=== PATIENT | male | born 1995 | race Caucasian/White ===

== ENCOUNTER 2017-10-31 04:55 | Observation (INO) ==
[2017-10-31] MEDS ORDERED: Morphine Inj 4 MG/ML Vial IV.PUSH ONE (05:43)
[2017-10-31] MEDS ORDERED: Sod Chloride 0.9% Inj 1,000 ML IV.SIG ONE (05:43)
[2017-10-31] MEDS ORDERED: Pantoprazole Inj 40 MG Vial IV.PUSH ONE (05:44)
[2017-10-31 05:59] LABS: Baso % (Auto) 0.2 % (0.0-2.0); Eos # (Auto) 0.1 th/mm3 (0.0-0.4); Eos % (Auto) 0.4 % (0.0-4.0); Hematocrit 43.3 % (39.0-51.0); Hemoglobin 14.5 gm/dL (13.0-17.0); Lymph # (Auto) 2.6 th/mm3 (1.0-4.8); Lymph % (Auto) 20.5 % (9.0-44.0); Mean Corpuscular HGB Conc 33.5 % (32.0-36.0); Mean Corpuscular Hemoglobin 29.7 pg (27.0-34.0); Mean Corpuscular Volume 88.7 fL (80.0-100.0); Mean Platelet Volume 8.4 fL (7.0-11.0); Mono # (Auto) 0.9 th/mm3 (0.0-0.9); Mono % (Auto) 6.9 % (0.0-8.0); Neut # (Auto) 9.1 th/mm3 (1.8-7.7); Platelet Count 207 th/mm3 (150-450); Red Blood Count 4.89 mil/mm3 (4.50-5.90); Red Cell Distribution Width 12.7 % (11.6-17.2); White Blood Count 12.7 th/mm3 (4.0-11.0)
[2017-10-31 06:13] LABS: Activated Partial Thrombo Time 28.4 sec (24.3-30.1)
[2017-10-31 06:26] LABS: Anion Gap 10 meq/L (5-15); Aspartate Aminotransferase 15 U/L (15-37); Blood Urea Nitrogen 11 mg/dL (7-18); Calcium 9.1 mg/dL (8.5-10.1); Carbon Dioxide 23.3 meq/L (21.0-32.0); Chloride 107 meq/L (98-107); Glomerular Filtration Rate Greater Than 89 mL/min (>89); Glucose,Random 93 mg/dL (74-106); Lipase 136 U/L (73-393); Potassium 3.9 meq/L (3.5-5.1); Sodium 140 meq/L (136-145)
[2017-10-31 06:27] LABS: Alanine Aminotransferase 35 U/L (12-78)
[2017-10-31 06:29] LABS: Alkaline Phosphatase 83 U/L (45-117); Total Protein 7.4 g/dL (6.4-8.2)
--- NOTE | 2017-10-31 06:37 | ED ---
HPI General Chief complaint: Abdominal Pain Stated complaint: ABD pain, vomiting Time Seen by Provider: 10/31/17 05:06 Source: patient Mode of arrival: ambulatory Limitations: no limitations History of Present Illness HPI narrative: The patient is a 22 year old male who presents to the [facility] emergency department with a history of abdominal pain that he reports first began last year between December and January 2017. He reports that the pain is in the midepigastric area and is sharp in character. He reports that it radiates to the right upper quadrant of the abdomen. He reports that it usually lasts for a few days and then seems to resolve on its own. He denies any change or worsening with eating. He does report having intermittent heartburn, however he reports that he has had this intermittently since high school. The patient reports that he has been seen by his primary care physician on 2 occasions related to the pain. On the first occasion he had laboratory studies done which as far as he knows were unremarkable. He has not had any imaging done related to the pain. He denies taking any prescribed medications. He reports that recently even when he is not experiencing the severe pain if he palpates the midepigastric area he has discomfort to palpation. He reports that the pain became worse again 2 days ago. He reports that it was a 2-3 out of 10 in severity, however this evening it awoke him from sound sleep and was an 8 out of 10 in severity. He reports that he had nausea and vomiting 1 prior to arrival. He denies having any diarrhea. He reports that he has been moving his bowels regularly. He denies having any blood in his stool or black or tarry stools. On review of systems otherwise, he denies having any known recent fevers, cough, congestion, neck pain, chest pain, shortness of breath, urinary symptoms, or neurologic symptoms. Related Data Home Medications Medication Instructions Recorded Confirmed No Known Home Medications 10/31/17 10/31/17 Allergies Allergy/AdvReac Type Severity Reaction Status Date / Time Sulfa (Sulfonamide Allergy Hives Verified 10/31/17 05:02 Antibiotics) Review of Systems ROS Unobtainable All other systems reviewed negative except as stated in HPI [facility] Medical History Medical History Neuropathy of right foot (Acute) Patient denies medical problems (Acute) Social History Social History Substance History: No History of Abuse Second Hand Smoke Exposure: No Smoking Status: Never smoker How Often Do You Have a Drink Containing Alcohol: Never Recent Travel in [facility] within the Last 8 Weeks: No Recent Out of Country Travel within the Last 8 Weeks: No Immunization History Tetanus Immunization: <5 Years Tetanus Immunization Year if Known: 2012 Hx Influenza Vaccine This Season: No Exam Const General: cooperative, no acute distress and well developed Nutritional Appearance: well nourished Orientation: alert, awake and oriented x3 HENMT Head: normocephalic and atraumatic Nose: no nasal discharge and no epistaxis Mouth: moist mucous membranes Throat: posterior oropharynx normal Eyes Sclera: normal sclerae Pupils: PERRL Neck Neck: no meningeal signs, trachea midline and no JVD Resp Effort & Inspection: no use of accessory muscles Auscultation: clear to auscultation bilaterally Cardio Rate: regular rate Rhythm: regular rhythm Heart Sounds: no murmurs GI Inspection: non-distended Palpation: soft, no hepatosplenomegaly, no masses and tender in the epigastrum, in the LUQ and in the RUQ; not in the LLQ, not in the RLQ, Ramirez's sign negative and with no rebound tenderness Auscultation: normal bowel sounds Back/Spine/Pelvis Back: no CVA tenderness Skin General: dry skin (warm) Neuro General: alert, awake and oriented x3 Cranial Nerves: other (Grossly nonfocal. No facial asymmetry.) Speech: speech normal Motor: no movement abnormalities noted Extrem General: normal to inspection, no clubbing, no cyanosis and no edema Psych Mood: congruent mood Affect: normal affect Judgment: judgment good Course Initial Documented Vital Signs Temperature 98.4 F 10/31/17 04:59 Pulse Rate 78 10/31/17 04:59 Respiratory Rate 18 10/31/17 04:59 Blood Pressure 133/70 10/31/17 04:59 Pulse Oximetry 100 10/31/17 04:59 Last Documented Vital Signs Temperature 98.1 F 10/31/17 05:11 Pulse Rate 72 10/31/17 07:17 Respiratory Rate 18 10/31/17 07:17 Blood Pressure 109/65 10/31/17 07:17 Pulse Oximetry 97 10/31/17 07:17 Sign Out Sign Out Data: Patient Sign Out occurred on 10/31/17 at 07:23. Patient's care was discussed, and care was transferred from Yohana Avelar MD to Duc Nava. Sign Out Comment: The patient's case will be checked out to the oncoming physician to disposition the patient based on the conclusion of his workup. The patient has a leukocytosis noted with midepigastric abdominal pain associated with left upper and right upper abdominal pain. The patient has urinalysis and CT scan of the abdomen and pelvis that are pending. Last updated by Yohana Avelar MD at 10/31/17 06:57 Medical Decision Making MDM Narrative Medical decision making narrative: During the course of the patient's emergency department visit, the patient's history, examination, and differential diagnosis were reviewed with the patient. The patient was placed on a cardiac rehabilitation program director with oximetry and frequent blood pressure monitoring. The patient had IV access obtained and blood work sent for analysis. Evaluation was begun in order to determine the possible cause of this patient's abdominal pain. Differential diagnosis includes peptic ulcer disease, versus pancreatitis, versus biliary colic, versus acute cholecystitis, versus perforated bowel The patient was initially provided morphine for pain, Compazine for nausea, normal saline IV fluids. The patient's diagnostic evaluation is remarkable for a white count of 12.7, hemoglobin is 14.5, platelets are 207 with neutrophils at 72, PT 10, PTT 28.4, chemistry is within normal limits, lipase within normal limits at 136, lactic acid within normal limits at 0.6. CT scan of the abdomen and pelvis is pending at the conclusion of my shift. The patient's case will be checked out to the oncoming emergency physician to disposition the patient based on the conclusion of his workup. Differential Diagnosis Differential Diagnosis: includes peptic ulcer disease, versus pancreatitis, versus biliary colic, versus acute cholecystitis, versus perforated bowel, versus kidney stone Medical Records Medical records reviewed: Yes I reviewed the patient's medical records. Lab Data Lab results reviewed: Yes I reviewed the patient's lab results. Result diagrams: 10/31/17 05:50 10/31/17 05:50 Lab Results 10/31/17 10/31/17 10/31/17 Range/Units 05:50 05:50 05:50 WBC 12.7 H (4.0-11.0) th/mm3 RBC 4.89 (4.50-5.90) mil/mm3 Hgb 14.5 (13.0-17.0) gm/dL Hct 43.3 (39.0-51.0) % MCV 88.7 (80.0-100.0) fL MCH 29.7 (27.0-34.0) pg MCHC 33.5 (32.0-36.0) % RDW 12.7 (11.6-17.2) % Plt Count 207 (150-450) th/mm3 MPV 8.4 (7.0-11.0) fL Neut % (Auto) 72.0 H (16.0-70.0) % Lymph % (Auto) 20.5 (9.0-44.0) % Atlantic % (Auto) 6.9 (0.0-8.0) % Eos % (Auto) 0.4 (0.0-4.0) % Baso % (Auto) 0.2 (0.0-2.0) % Neut # (Auto) 9.1 H (1.8-7.7) th/mm3 Lymph # (Auto) 2.6 (1.0-4.8) th/mm3 Atlantic # (Auto) 0.9 (0.0-0.9) th/mm3 Eos # (Auto) 0.1 (0.0-0.4) th/mm3 Baso # (Auto) 0.0 (0.0-0.2) th/mm3 WBC Differential . Differential Comment Auto diff final PT 10.0 (9.8-11.6) sec INR 1.0 Ratio APTT 28.4 (24.3-30.1) sec Sodium 140 (136-145) meq/L Potassium 3.9 (3.5-5.1) meq/L Chloride 107 (98-107) meq/L Carbon Dioxide 23.3 (21.0-32.0) meq/L Anion Gap 10 (5-15) meq/L BUN 11 (7-18) mg/dL Creatinine 1.02 (0.60-1.30) mg/dL Estimated GFR Greater than 89 (>89) mL/min Random Glucose 93 (74-106) mg/dL Lactic Acid (0.4-2.0) mmol/L Calcium 9.1 (8.5-10.1) mg/dL Total Bilirubin 0.8 (0.2-1.0) mg/dL AST 15 (15-37) U/L ALT 35 (12-78) U/L Alkaline Phosphatase 83 (45-117) U/L Total Protein 7.4 (6.4-8.2) g/dL Albumin 4.0 (3.4-5.0) g/dL Lipase 136 (73-393) U/L 10/31/17 Range/Units 05:50 WBC (4.0-11.0) th/mm3 RBC (4.50-5.90) mil/mm3 Hgb (13.0-17.0) gm/dL Hct (39.0-51.0) % MCV (80.0-100.0) fL MCH (27.0-34.0) pg MCHC (32.0-36.0) % RDW (11.6-17.2) % Plt Count (150-450) th/mm3 MPV (7.0-11.0) fL Neut % (Auto) (16.0-70.0) % Lymph % (Auto) (9.0-44.0) % Atlantic % (Auto) (0.0-8.0) % Eos % (Auto) (0.0-4.0) % Baso % (Auto) (0.0-2.0) % Neut # (Auto) (1.8-7.7) th/mm3 Lymph # (Auto) (1.0-4.8) th/mm3 Atlantic # (Auto) (0.0-0.9) th/mm3 Eos # (Auto) (0.0-0.4) th/mm3 Baso # (Auto) (0.0-0.2) th/mm3 WBC Differential Differential Comment PT (9.8-11.6) sec INR Ratio APTT (24.3-30.1) sec Sodium (136-145) meq/L Potassium (3.5-5.1) meq/L Chloride (98-107) meq/L Carbon Dioxide (21.0-32.0) meq/L Anion Gap (5-15) meq/L BUN (7-18) mg/dL Creatinine (0.60-1.30) mg/dL Estimated GFR (>89) mL/min Random Glucose (74-106) mg/dL Lactic Acid 0.6 (0.4-2.0) mmol/L Calcium (8.5-10.1) mg/dL Total Bilirubin (0.2-1.0) mg/dL AST (15-37) U/L ALT (12-78) U/L Alkaline Phosphatase (45-117) U/L Total Protein (6.4-8.2) g/dL Albumin (3.4-5.0) g/dL Lipase (73-393) U/L Discharge Plan Discharge Disposition Patient Disposition: 30 Still Patient Physicians Team ED Provider: Duc Nava Primary Care Provider: Samir Post Rxs /Orders / Referrals /Forms Prescriptions: No Action No Known Home Medications RF: 0 Status ED Status: With Doctor
--- NOTE | 2017-10-31 07:49 | CT ---
EXAM DATE: 10/31/2017 7:27 AM EDT AGE/SEX: 22 years / Male INDICATIONS: Epigastric pain for 2 days. CLINICAL DATA: This is the patient's initial encounter. Patient reports that signs and symptoms have been present for 2 days and indicates a pain score of 5/10. MEDICAL/SURGICAL HISTORY: None. None. ORAL CONTRAST: No oral contrast ingested. RADIATION DOSE: 7.46 CTDI (mGy) ; Combined studies COMPARISON: No prior exams available for comparison. TECHNIQUE: Multiple contiguous axial images were obtained through the abdomen and pelvis following b olus infusion of 100 ml Omnipaque 350 (iohexol) nonionic water-soluble contrast as a single exam do se. No oral contrast ingested. Using automated exposure control and adjustment of the mA and/or kV a ccording to patient size, radiation dose was kept as low as reasonably achievable to obtain optimal d iagnostic quality images. DICOM format image data is available electronically for review and compari son. FINDINGS: Lower Lungs: The visualized lower lungs are clear. Liver: The liver has a homogeneous density without space-occupying lesion. There is no dilation of th e biliary tree. Gallbladder: Unremarkable. Spleen: Unremarkable. Pancreas: Unremarkable without mass or calcification. Kidneys: Normal in size and shape. No evidence of mass or hydronephrosis. Adrenal Glands: Unremarkable. Aorta: The aorta and proximal iliac vessels are grossly unremarkable without aneurysmal dilation. Bowel/Mesentery: The appendix is enlarged, measuring 1.4 cm, with wall thickening and surrounding fa t stranding. There is a small hyperdensity within the lumen, likely an appendicolith. Findings are ch aracteristic of acute appendicitis. No evidence of abscess formation or perforation. A few small ileo cecal lymph nodes are likely reactive. Scattered colonic diverticula without evidence of acute divert iculitis. No bowel obstruction. Abdominal Wall: Intact. Retroperitoneum: No evidence of adenopathy in the retrocrural, para-aortic, or deep pelvic regions. Bladder: Contours are smooth. Reproductive Organs: No abnormal masses or calcifications seen. Inguinal: The inguinal region is unremarkable without evidence of adenopathy. Bony Structures: Unremarkable. CONCLUSION: 1. Acute uncomplicated appendicitis. Findings discussed Dr. Nava at 7:43 AM on 10/31/2017. Electronically signed by: Roseanne Yu MD 10/31/2017 7:47 AM EDT
[2017-10-31 08:16] LABS: Bilirubin,Urine Negative (Negative); Clarity,Urine Clear (Clear); Color,Urine Straw (Yellw/Straw); Glucose,Urine (UA) Negative (Negative); Leukocyte Esterase,Urine Negative (Negative); Mucus,Urine Few /lpf (Occasional); Nitrite,Urine Negative (Negative); Specific Gravity,Urine 1.014 (1.002-1.035)
[2017-10-31] MEDS ORDERED: Piperacil/Tazo 3.375 GM Premix 50 ML IV.SIG ONE (08:33)
[2017-10-31] MEDS: Morphine Sulfate Inj 2 MG/ML Vial IV.PUSH PRN ×2 (11:03→22:22)
[2017-10-31] MEDS ORDERED: Neostigmine Inj 5 MG/5 ML Syringe IV.PUSH ONE (12:00)
[2017-10-31] MEDS ORDERED: Ketorolac Inj 30 MG/ML (IVP) Vial IV.PUSH ONE (12:00)
[2017-10-31] MEDS ORDERED: Glycopyrrolate Inj 1 MG/5 ML Syringe IV.PUSH ONE (12:00)
[2017-10-31] MEDS ORDERED: Lidocaine PF 1% Inj 5 ML Syringe INFILTRATN ONE (12:00)
--- NOTE | 2017-10-31 12:37 | P.HPGS ---
History of Present Illness Service: General Surgery Primary Care Physician: Samir Post MD Chief Complaint: Abdominal pain History of Present Illness: 22 yo M presents with generalized abdominal pain for 2-3 days was developed into acute right sided and epigastric pain early this morning. He had one episode of emesis and no other complaints. He states that for a few months he has had off and on epigastric pain. He has no medical problems and no previous surgeries. 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 He was evaluated in the emergency department and noted to have leukocytosis and CT of the abdomen and pelvis consistent with acute appendicitis. - Diagnosis (1) Acute appendicitis Inpatient Certification: I certify that the inpatient services were ordered in accordance with Medicare regulations governing the order. This includes certification that hospital inpatient services are reasonable and necessary and in the case of services not specified as inpatient-only under 42 CFR 419.22(n), that they are appropriately provided as inpatient services in accordance to with the 2-midnight benchmark under 43 CFR 412.3(e) Plans for Post Hospital Care: Home Review of Systems All other systems reviewed negative except as stated in HPI [facility] - History History Provided By: Patient - Medical History Medical History: Medical History (Last Reviewed 10/31/17 @ 11:27 by Tiera Pierce RN) Neuropathy of right foot Patient denies medical problems - Tobacco History Second Hand Smoke Exposure: No Smoking Status: Never smoker - Alcohol History How Often Do You Have a Drink Containing Alcohol: Never - Substance Use History Substance History: No History of Abuse - Travel History Recent Travel in the [place] Within the Last 8 Weeks: No Recent Travel Out of the Country Within the Last 8 Weeks: No - Immunization History Tetanus Immunization: <5 Years Tetanus Immunization Year if Known: 2012 Hx Influenza Vaccine This Season: No Medications and Allergies Active Medications: Active Medications Piperacillin/Tazobactam/Dextrose (Zosyn 3.375 Gm Premix) 50 mls @ 100 mls/hr IV.SIG Q6H LC Lactated Ringer's (Lr 1000 Ml Inj) 1,000 mls @ 125 mls/hr IV.CONT .Q8H LC Last Admin: 10/31/17 08:58 Dose: 125 mls/hr Morphine Sulfate (Morphine Inj) 2 mg IV.PUSH Q4H PRN PRN Reason: Pain 1-10 Last Admin: 10/31/17 11:03 Dose: 2 mg Ondansetron HCl (Zofran Inj) 4 mg IV.PUSH Q6H PRN PRN Reason: NAUSEA OR VOMITING Sodium Chloride (Ns Flush) 2 ml IV.FLUSH PRN PRN PRN Reason: FLUSH AFTER USING IV ACCESS Allergies Allergy/AdvReac Type Severity Reaction Status Date / Time Sulfa (Sulfonamide Allergy Hives Verified 10/31/17 05:02 Antibiotics) Home Medications Medication Instructions Recorded Confirmed Type No Known Home Medications 10/31/17 10/31/17 History Exam Vital signs: Vital Signs 10/31/17 04:59 10/31/17 05:11 10/31/17 05:58 Temperature 98.4 F 98.1 F Pulse Rate 78 78 Respiratory Rate 18 16 Blood Pressure 133/70 128/69 Pulse Oximetry 100 99 100 10/31/17 07:17 10/31/17 11:15 Temperature 97.5 F L Pulse Rate 72 67 Respiratory Rate 18 16 Blood Pressure 109/65 118/69 Pulse Oximetry 97 100 Intake & Output 10/30/17 10/31/17 10/31/17 18:59 06:59 18:59 Weight 95.254 kg 95.254 kg Other: Weight On Admission 95.254 kg Narrative: GENERAL: Awake and alert. No acute distress. Cooperative. HEAD: Normocephalic. Atraumatic. EYES: Pupils equal round and reactive to light bilaterally. No scleral icterus. ENT: Moist oral mucosa. NECK: Trachea midline. CHEST: Lungs clear to auscultation bilaterally with no wheezing or rhonchi. No respiratory distress. CARDIOVASCULAR: Regular rate and rhythm. ABDOMEN: Severe RLQ ttp and RUQ ttp. EXTREMITIES: No cyanosis or edema. SKIN: Warm, dry, nonjaundiced. Results - Results CT scan - abdomen: report reviewed, image reviewed CT scan - pelvis: report reviewed, image reviewed Caprini VTE Risk Assessment Caprini VTE Risk Assessment: No/Low Risk (score <= 1) Caprini Risk Assessment Model: Point Value = 1 Point Value = 2 Point Value = 3 Point Value = 5 Age 41-60 Minor surgery BMI > 25 kg/m2 Swollen legs Varicose veins or History of unexplained or recurrent spontaneous Oral contraceptives or hormone replacement Sepsis (< 1 month) Serious lung disease, including pneumonia (< 1 month) Abnormal pulmonary function Acute myocardial infarction Congestive heart failure (< 1 month) History of inflammatory bowel disease Medical patient at bed rest Age 61-74 Arthroscopic surgery Major open surgery (> 45 min) Laparoscopic surgery (> 45 min) Malignancy Confined to bed (> 72 hours) Immobilizing plaster cast Central venous access Age >= 75 History of VTE Family history of VTE Factor V Leiden Prothrombin [id number] Lupus anticoagulant Anticardiolipin antibodies Elevated serum homocysteine Heparin-induced thrombocytopenia Other congenital or acquired thrombophilia Stroke (< 1 month) Elective arthroplasty Hip, pelvis, or leg fracture Acute spinal cord injury (< 1 month) Prophylaxis Regimen: Total Risk Factor Score Risk Level Prophylaxis Regimen 0-1 Low Early ambulation 2 Moderate Order ONE of the following: *Sequential Compression Device (SCD) *Heparin 5000 units SQ BID 3-4 Higher Order ONE of the following medications: *Heparin 5000 units SQ TID *Enoxaparin/Lovenox 40 mg SQ daily (WT < 150 kg, CrCl > 30 mL/min) *Enoxaparin/Lovenox 30 mg SQ daily (WT < 150 kg, CrCl > 10-29 mL/min) *Enoxaparin/Lovenox 30 mg SQ BID (WT < 150 kg, CrCl > 30 mL/min) AND/OR *Sequential Compression Device (SCD) 5 or more Highest Order ONE of the following medications: *Heparin 5000 units SQ TID (Preferred with Epidurals) *Enoxaparin/Lovenox 40 mg SQ daily (WT < 150 kg, CrCl > 30 mL/min) *Enoxaparin/Lovenox 30 mg SQ daily (WT < 150 kg, CrCl > 10-29 mL/min) *Enoxaparin/Lovenox 30 mg SQ BID (WT < 150 kg, CrCl > 30 mL/min) AND *Sequential Compression Device (SCD) Assessment and Plan - Assessment (1) Acute appendicitis Code(s): K35.80 - Unspecified acute appendicitis Status: Acute - Plan Evaluation consistent with acute appendicitis. Recommend proceed with laparoscopic appendectomy. Discussed in detail with patient and he agrees and desires to proceed.
[2017-10-31] MEDS ORDERED: Piperacil/Tazo 3.375 GM Premix 50 ML IV.SIG SCH (15:00)
[2017-10-31] MEDS ORDERED: Bupivacaine/Epinephrine PF Inj 0.5% 10 ML Vial ONE (15:35)
--- NOTE | 2017-10-31 17:02 | P.OP ---
- Preoperative Diagnosis (1) Acute appendicitis - Postoperative Diagnosis (1) Acute appendicitis Date of procedure: 10/31/17 Procedure: Laparoscopic appendectomy Anesthesia: NAVJOTA Surgeon: Jose Kwan MD Estimated blood loss (mL): 10 Pathology: other (Appendix) Operation and Findings: EBL: 5 cc Complications: None apparent Operative findings: Inflamed and very dilated appendix. Procedure in detail: The patient was taken to the operating room placed in the supine position with left arm tucked. General endotracheal anesthesia was induced and the abdomen was prepped and draped in usual sterile fashion. Surgical timeout was performed to verify correct patient procedure and site. Perioperative antibiotics were administered as necessary. Local anesthetic was injected in the skin and subcutaneous tissue in the left lower abdomen and a 5 mm incision made. Using the 5 mm Optiview trocar with laparoscope the abdomen was directly entered. The abdomen was then insufflated to 15 mmHg with CO2 gas which the patient tolerated well. The patient was then placed in Trendelenburg position and turned slightly to the left. A 12 mm port was placed under laparoscopic visualization in the left lower abdomen and another 5 mm port near the umbilicus. Attention was turned to the right lower quadrant. The appendix was inflamed and very dilated.. The mesoappendix was taken down with the Harmonic scalpel. Two #1 PDS Endoloops were placed at the base the appendix and the appendix transected with Harmonic scalpel. It was then removed using an Endo Catch bag. The appendiceal stump was intact with no leakage. Some fluid from the pelvis was suctioned from the abdomen. The abdomen was allowed to desufflate. The fascia at the 12 mm port site was closed with a figure-of- eight 0 Vicryl suture. Skin closed with subcuticular Monocryl as well as Dermabond. The patient tolerated the procedure well was extubated and taken to PACU in stable condition.
[2017-10-31] MEDS ORDERED: fentaNYL Citrate Inj 100 MCG/2 ML Ampul ONE (17:14)
[2017-10-31] MEDS ORDERED: *Meperidine Inj 25 MG/ML Vial PERIprocedural Use ONLY ONE (17:19)
[2017-10-31] MEDS ORDERED: *morphine SULFATE 4 MG/ML PERIprocedure ONLY ONE (17:30)
[2017-10-31] MEDS ORDERED: *Ondansetron Inj 4 MG/2 ML Vial PERIprocedural Use ONLY ONE (17:32)
[2017-10-31] MEDS ORDERED: Chlorhexidine Gluconate 2% 1 Pack (2 Cloths) TOPICAL SCH (18:15)
[2017-10-31] MEDS ORDERED: Metoprolol Tartrate 25 MG Tablet PO SCH (18:15)
[2017-10-31] MEDS ORDERED: Sodium Chlor 0.9% Inj 500 ML IV.SIG SCH (19:00)
[2017-10-31] MEDS: Ketorolac 10 MG Tablet PO SCH (20:50)
[2017-11-01] MEDS: Ketorolac 10 MG Tablet PO SCH ×3 (06:00→07:43)
--- NOTE | 2017-11-01 09:57 | P.PNGS ---
Subjective Interval history: Doing well post op. Simba diet. No N/V. Pain controlled with toradol. Physical Exam Vital signs: Vital Signs 10/31/17 11:15 10/31/17 17:10 10/31/17 17:30 Temperature 97.5 F L 98.4 F Pulse Rate 67 78 72 Respiratory Rate 16 20 Blood Pressure 118/69 113/65 112/65 Pulse Oximetry 100 98 10/31/17 17:44 10/31/17 18:30 10/31/17 20:00 Temperature 98.4 F 97.6 F 98.6 F Pulse Rate 74 63 67 Respiratory Rate 15 16 Blood Pressure 110/58 L 119/62 Pulse Oximetry 100 99 11/01/17 00:00 11/01/17 04:00 Temperature 97.7 F 98.4 F Pulse Rate 74 76 Respiratory Rate 16 16 Blood Pressure 121/52 L 104/54 L Pulse Oximetry 97 97 Intake & Output 10/31/17 11/01/17 11/01/17 18:59 06:59 18:59 Intake Total 2200 / 2200 960 / 960 Output Total 10 10 Balance 2190 / 2190 960 / 960 Weight 95.254 kg Intake: IV 1000 / 1000 LR 1000 mL Inj 1,000 ML @ 125 1000 / 1000 mls/hr IV.CONT .Q8H LC Rx#: [id number] Oral 960 / 960 Anesthesia Amount 1200 / 1200 Output: Estimated Blood Loss 10 10 Other: # Voids 2 5 # Bowel Movements 0 # Emeses 0 Weight On Admission 95.254 kg Narrative: NAD Abd: soft, inc c/d/i Assessment and Plan - Assessment (1) Acute appendicitis Code(s): K35.80 - Unspecified acute appendicitis Status: Acute - Plan POD 1 s/p lap appy, doing well. Stable. D/c home. Regular diet. F/u in two weeks. Rx for toradol. Activity- no heavy lifting.
== END 2017-11-01 13:47 | disposition home or self-care (01) ==
LOC: NEPE 04:55 → H6YA 04:55 → INTOOBSV 08:34 → NEDA 08:34 → H6YA 11:14
PROVIDERS: ADMIT Surgery; ATTEND Surgery
PROC: LAPAPPY (ICD-10-PCS; 2017-10-31 15:57)